=== PATIENT | female | born 1955 | race Caucasian/White ===

== ENCOUNTER 2018-08-07 06:00 | Day surgery (SDC) | payer BC ==
[~2018-08-07] VITALS: Ht 167.6 cm; Wt 113.4 kg
--- NOTE | ~2018-08-07 | O ---
[facility] [place] [address] OPERATIVE REPORT Name: CASSANDRA HATFIELD Room #: 150-10 [facility]..#: [id number] Admission: 08/07/18 Attend Phys: Gil Johnson MD Discharge: Date of : 55 Report #: [id number] THIS REPORT FOR: //name// CC: PATRICIA Coyle Physician staff Garcia Johnson DATE OF SERVICE: 08/07/2018 PREOPERATIVE DIAGNOSIS: Tumor of left lower lid and cheek. POSTOPERATIVE DIAGNOSIS: Tumor of left lower lid and cheek, basal cell carcinoma. PROCEDURE: Excision of tumor of left lower lid and cheek with frozen section, control of margins and myocutaneous flap repair of defect. SURGEON: Gil Johnson MD. PIN ATTACHER: None. ANESTHESIA: MAC. COMPLICATIONS: None. INDICATIONS FOR SURGERY: This pleasant 63-year-old woman has a nodular ulcerative lesion in her central left lower lid extending on to her cheek that appears to be a basal cell carcinoma. She presents today for excision of the lesion with frozen section, control of margins and subsequent repair of that defect. Informed consent was obtained to include but not limited to potential risk for loss of vision, bleeding, infection, failure to improve the problem, the potential need for further surgery or treatment. DESCRIPTION OF PROCEDURE: The patient was taken to the operating room where 0.75% Marcaine with Wydase and epinephrine was administered transconjunctivally and transcutaneously to the left lower lid and the left cheek after IV sedation had been administered. The patient was subsequently prepped and draped in the usual sterile fashion. A fine tip skin marking pen was then utilized to outline the lesion including 1-2 mm of normal appearing tissue. The incisions were then made perpendicularly across the eyelid margin and drawn to a point in the premalar space. Hemostasis was achieved in the field with diligent pinpoint monopolar cautery as the specimen was passed off and oriented to the pathologist who snap froze that specimen. She found that the lesion was indeed a basal cell carcinoma and she felt that the lateral margin was closed, so she requested an [facility] [address] [place] [address] OPERATIVE REPORT Name: CASSANDRA HATFIELD Room #: 150-10 [facility]..#: [id number] Admission: 08/07/18 Attend Phys: Gil Johnson MD Discharge: Date of : 55 Report #: [id number] additional margin on that side. She felt the medial margin was fine. An additional lateral margin was taken. Hemostasis re-achieved and the pathologist snap froze that tissue and found that the new margin was now widely clear. The defect at this point was larger than what had been originally anticipated. A myocutaneous flap was developed inferotemporally and rotated into position. The flap was advanced and secured with interrupted 5-0 Vicryl sutures deep to draw the soft tissue forward enough to take tension off of the skin. The eyelid margin was reapproximated with interrupted 7-0 Vicryl sutures. The tarsal plate was reapproximated with interrupted 6-0 Vicryl sutures. The subcutaneous structures and the skin were then closed with interrupted Vicryl sutures deep and then 6-0 plain gut sutures more superficially. The wounds were then cleaned and dressed with erythromycin ophthalmic ointment. The patient subsequently transported to the recovery area having tolerated the procedures well with no anesthetic or operative complications being noted. By: [id number] Gil Johnson MD /nt
[~2018-08-07 06:00] MED LIST: ALLEGRA ALLERG180 MG PO; LISINOPRIL20 MG PO; SYNTHROID137 MC1 PO
[2018-08-07 08:00] VITALS: BP 127/69
== END 2018-08-07 10:00 | disposition home or self-care (01) ==
LOC: TBA 06:00 → OR 06:00
DX: C44.1192 Basal cell carcinoma of skin of left lower eyelid, including canthus (principal); C44.319 Basal cell carcinoma of skin of other parts of face; I10 Essential (primary) hypertension; E03.9 Hypothyroidism, unspecified; Z87.891 Personal history of nicotine dependence; Z87.442 Personal history of urinary calculi; Z90.49 Acquired absence of other specified parts of digestive tract; Z98.890 Other specified postprocedural states; Z88.0 Allergy status to penicillin; Z88.2 Allergy status to sulfonamides; Z88.8 Allergy status to other drugs, medicaments and biological substances; Z79.899 Other long term (current) drug therapy
CPT/HCPCS: 50010; 50101; 50386; 50398; 51636; 56528; 56531; 62110; 62850; 70005